=== PATIENT | female | born 1995 | race African-American/Black ===

== ENCOUNTER 2020-10-17 23:15 | Emergency (ER) | payer OTHER ==
[~2020-10-17] VITALS: Ht 165.1 cm; Wt 54.4 kg
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
--- NOTE | 2020-10-17 23:33 | NUR ---
DR CABALLERO AT BEDSIDE
--- NOTE | 2020-10-17 23:41 | NUR ---
PT WAS DISCHARGE WITH THE [employer] PO WITH HER, PT REFUSED V/S OR EVEN CLEANING THE BLOOD ON HER CHIN, PT ALERT ORIENTED, BREATHING EVEN AND UNLABORED NO SIGN OF ANY RESPIRATORY DISTRESS, AMBULATORY WITH STEADY GAIT
== END 2020-10-17 23:44 ==
LOC: ER 23:19
DX: Z02.89 Encounter for other administrative examinations (principal)